=== PATIENT | female | born 1990 ===

== ENCOUNTER 2018-01-18 13:06 | Inpatient (IN) | payer BC, MEDICAID ==
[2018-01-18 13:47] VITALS: BMI 30.5
[2018-01-18 15:14] LABS: BASO % 0.5 % (0.0-2.0); EOS # 0.1 K/uL (0.0-0.7); EOS % 1.6 % (0.0-4.0); HEMOGLOBIN 11.2 g/dL (12.0-16.0); LYMPH # 1.5 K/uL (1.0-4.3); LYMPH % 26.8 % (20.0-40.0); MEAN CELL VOLUME 86.2 fl (81.0-99.0); MEAN CORPUSCULAR HEMOGLOBIN 29.8 pg (27.0-31.0); MEAN CORPUSCULAR HGB CONC 34.6 g/dL (33.0-37.0); MEAN PLATELET VOLUME 9.9 fl (7.2-11.7); MONO # 0.6 K/uL (0.0-0.8); MONO % 10.5 % (0.0-10.0); NEUT # 3.3 K/uL (1.8-7.0); NEUT % 60.6 % (50.0-75.0); NRBC % 0.2 % (0.0-0.0); RBC 3.76 Mil/uL (3.80-5.20); RED CELL DISTRIBUTION WIDTH 15.4 % (11.5-14.5); WHITE BLOOD COUNT 5.5 K/uL (4.8-10.8)
[2018-01-18 15:20] LABS: SQUAMOUS EPITHIAL 1 /hpf (0-5); URINE BACTERIA OCC (<OCC); URINE BILIRUBIN NEGATIVE (NEGATIVE); URINE BLOOD NEGATIVE (NEGATIVE); URINE CLARITY CLOUDY (Clear); URINE COLOR YELLOW (YELLOW); URINE GLUCOSE (UA) NEG (Normal); URINE LEUKOCYTE ESTERASE LARGE Leu/uL (Negative); URINE PROTEIN NEGATIVE (NEGATIVE); URINE UROBILINOGEN 0.2-1.0 mg/dL (0.2-1.0)
[2018-01-18 15:30] LABS: ALBUMIN 3.3 g/dL (3.5-5.0); ALT/SGPT 21 U/L (9-52); AST/SGOT 21 U/L (14-36); BLOOD UREA NITROGEN 3 mg/dl (7-17); CALCIUM 8.9 mg/dL (8.4-10.2); GFR AFRICAN-AMERICAN > 60; GFR NON-AFRICAN AMERICAN > 60; URIC ACID 4.7 mg/Dl (2.2-7.5)
[2018-01-18] MEDS ORDERED: AMPicillin 2 GM in Sodium Chloride 0.9% 100 ML IVPB ONE (17:43)
[2018-01-18] MEDS ORDERED: Lactated Ringer's 1,000 ML IV ONE (17:43)
--- NOTE | 2018-01-18 18:09 | OBADHP ---
Datetime: 01/18/2018 17:59 IP Chief Complaint Other: severe migraine IP Adm Impression Other: early labor with cervical chnges and decreased fm Admit Comment, IP Provider: pt came in c/o severe headaches and blurry vision and hx of pre-eclampsi a on first preg and monitoring done blood work done and BP monitored and stable Pt now also c/o decreased fm and upon pelvic exam cervical changes noted from last exam and since in early labor and with above hx and c/o will admit to L/D for possible augumentation and delivery Pt understands and a greed Extremities - PN: Normal Abdomen - PN: Abnormal Back - PN: Normal Breast - PN: Normal Lungs - PN: Normal Heart - PN: Normal Thyroid - PN: Normal Neurologic - PN: Normal HEENT - PN: Normal General - PN: Normal Presentation-Admit: Cephalic FHR - Baseline A Provider: 140 Membranes, Provider: Intact Contraction Comments Provider: irre Comments, ACOG Physical Exam: Abd gravid NT fundus at term Ext no edema or calf tenderness, no hyper rflexia Gestation - Est Wks by US: 39= IP Hx Assessment: The History has been Reviewed and is Current Vital Signs Provider: Reviewed IP Chief Complaint: Uterine contractions; Decreased movement; Other NICHD Variability Prov Fetus A: Moderate 6-25bpm NICHD Accel Fetus A IP Provider: 10X10 NICHD Decel Fetus A IP Provider: None Dilatation, Provider: 2cm Effacement, Provider: 80 Genitourinary Exam: Normal DTRs - PN: Normal EGA AdmitDate IP: 39.3 IP Adm Impression: Term, intrauterine IP Admit Plan: Admit to unit; Initiate labor protocol
[2018-01-18 18:30] VITALS: TEMP 98.2
[2018-01-18] MEDS: AMPicillin 1 GM in Sodium Chloride 0.9% 100 ML IVPB SCH (22:43)
[2018-01-19] MEDS ORDERED: Oxytocin 30 units/LR 500ML 30 U/500 ML BAG IV ONE (02:00)
[2018-01-19] MEDS: AMPicillin 1 GM in Sodium Chloride 0.9% 100 ML IVPB SCH ×6 (02:30→22:45)
--- NOTE | 2018-01-19 07:29 | OBPN ---
Datetime: 01/19/2018 07:25 IP Progress Impression: Normal progression of labor IP Progress Plan: Continue present management Membranes, Provider: Intact Contraction Comments Provider: q3 m FHR - Baseline A Provider: 150's Gestation - Est Wks by US: 39+ Presentation-Admit: C IP Progress Note Comment: bP stable no headaches Continue Pitocin augumentation and IV antibiotics NICHD Accel Fetus A IP Provider: 10X10 NICHD Variability Prov Fetus A: Moderate 6-25bpm Dilatation, Provider: 2-3 cm Effacement, Provider: 80-90 Station, Provider: -2 NICHD Decel Fetus A IP Provider: None Datetime: 01/18/2018 17:59 Vital Signs Provider: Reviewed
[2018-01-19] MEDS: Lactated Ringer's 1,000 ML IV SCH ×2 (08:00→23:15)
[2018-01-19] MEDS ORDERED: Lactated Ringer's 1,000 ML IV SCH (10:00)
[2018-01-19] MEDS ORDERED: Fentanyl/Bupivacaine HCl 250 ML EPI ONE (17:03)
[2018-01-19] MEDS ORDERED: Lidocaine 1% Inj (20ml) ONE (21:03)
--- NOTE | 2018-01-20 02:36 | OBDS ---
MATERNAL INFORMATION Delivery Anesthesia: Epidural Estimated Blood Loss (ml): 250 Maternal Complications: None Provider Comments: Delivered a living baby girl appears term cried spontaneously appears LGA, 9/9, AF clear, placenta complete and intact Perineum appears intact no cervical, vaginal or perineal tears or laceration noted Uterus contracted well Rectal done no defects Tolerated procedure well No c omplications LABOR SUMMARY EDC: 01/22/2018 00:00 No. Babies in Womb: 1 Labor Anesthesia: Epidural LABOR INFORMATION Reason for Induction: Not Applicable Onset of Labor: 01/19/2018 14:40 Oxytocin: Augmentation Group B Beta Strep: Positive Steroids Given: None Reason Steroids Not Administered: Not Applicable Other Reason Not Administered: n/a MEMBRANES Membranes Rupture Method: Artificial Amniotic Fluid Color: Clear Amniotic Fluid Amount: Large VAGINAL DELIVERY Episiotomy: None Laceration Extension: N/A Laceration Type: None Laceration Repair: Not Applicable Sponge Count Correct: Yes Sharps Count Correct: N/A Count Comment: count correct and verified by RN CSECTION DELIVERY Primary Indication: N/A Secondary Indication: N/A CSection Incision: N/A Uterine Closure: N/A BABY A INFORMATION Forceps: N/A Vacuum Extraction: N/A Shoulder Dystocia : No PRESENTATION/POSITION BABY A Presentation: Cephalic Cephalic Presentation: Vertex Vertex Position: Left Occipital Anterior Breech Presentation: N/A PLACENTA INFORMATION BABY A Placenta Method of Delivery: Spontaneous Placenta Status: Delivered
[2018-01-20] MEDS ORDERED: Oxycodone/Acetaminophen 5/325 mg Tab PO PRN ×2 (02:38→05:03)
[2018-01-20] MEDS ORDERED: Benzocaine/Menthol SPRAY TOP PRN (02:38)
[2018-01-20] MEDS: Benzocaine/Menthol SPRAY TOP PRN (05:30)
[2018-01-21 07:13] LABS: BASO # 0.1 K/uL (0.0-0.2); EOS # 0.2 K/uL (0.0-0.7); EOS % 2.4 % (0.0-4.0); HEMOGLOBIN 11.6 g/dL (12.0-16.0); LYMPH # 2.5 K/uL (1.0-4.3); LYMPH % 28.6 % (20.0-40.0); MEAN CELL VOLUME 86.8 fl (81.0-99.0); MEAN CORPUSCULAR HEMOGLOBIN 29.6 pg (27.0-31.0); MEAN CORPUSCULAR HGB CONC 34.1 g/dL (33.0-37.0); MEAN PLATELET VOLUME 9.7 fl (7.2-11.7); MONO # 0.8 K/uL (0.0-0.8); MONO % 9.1 % (0.0-10.0); NEUT # 5.1 K/uL (1.8-7.0); NEUT % 58.9 % (50.0-75.0); NRBC % 0.1 % (0.0-0.0); RBC 3.93 Mil/uL (3.80-5.20); RED CELL DISTRIBUTION WIDTH 15.8 % (11.5-14.5); WHITE BLOOD COUNT 8.6 K/uL (4.8-10.8)
[2018-01-22] MEDS: Benzocaine/Menthol SPRAY TOP PRN (09:03)
--- NOTE | 2018-01-22 09:11 | OBPPN ---
Datetime: 01/22/2018 09:05 PP Pain Prov: Within normal limits PP Pain Prov comment: Sob, chest pains or leg pains PP Nausea Prov: Denies PP Flatus Prov: Yes PP Nausea Prov comment: voiding well PP Breasts Prov: Normal PP Lungs Prov: Normal PP Abdomen/Uterus Prov: Abnormal PP Lochia Prov: Normal PP Vulva/Perineum Prov: Normal PP CVA Tenderness Prov: Normal PP Extremities Prov: Normal PP C/S Incision Prov: Not Applicable PP Progress Prov: Normal PP Comments Phys Exam Prov: breast NE, NT breast feeding; Abd soft ND, fundus firm below umb NT Ext no leg edema or calf tenderness PP Impression Prov: Normal progression PP Plan Prov: Discharge PP Progress Note Prov: D/C home with instructions and follow up office 4-6 wks IP PP Procedures: None Vital Signs Provider PP: Reviewed
--- NOTE | 2018-01-22 09:13 | OBDCSUM ---
Datetime: 01/22/2018 09:10 Discharged to, Provider: Home Follow up at, Provider: Dr Jude Main Instr Activity: Bedrest; May be up to bathroom; May be up for meals; May Shower Disch Instr Diet: Regular Discharge Instructions, Provider: Routine instructions given Discharge Diagnosis, Provider: Term Delivered Discharge Time: 01/22/2018 09:10 Follow up in weeks, Provider: 4-6 wks Disch Referrals: None Contraception discussed, Prov: Yes Disch Activity Restrictions: No exercising; No lifting; No driving; Minimize walking; Minimize stair -climbing; No sexual activity; Nothing in vagina - [place], tampons, douche Discharge Comment, Provider: continue PNC vit and iron Contraception after Delivery: Undecided Datetime: 01/22/2018 09:06 Discharged to, Provider: Home Follow up at, Provider: Dr. Jude Main Instr Activity: Normal activity Disch Instr Diet: Regular Discharge Time: 01/22/2018 10:00 Follow up in weeks, Provider: 6 Weeks Disch Referrals: None Disch Activity Restrictions: No sexual activity; Nothing in vagina - [place], tampons, douche
[2018-01-22 15:42] VITALS: BP 121/88; PULSE 79; RESP 20; O2SAT 98
== END 2018-01-22 10:33 | disposition home or self-care (01) | DRG 775 ==
LOC: H.EROB2 13:06 → H.L&D 17:41 → H.OB/GYN 01-20 04:15
PROVIDERS: ADMIT Specialist; ATTEND Specialist
PROC: 4A1HXCZ Monitoring of Products of Conception, Cardiac Rate, External Approach (ICD-10-PCS; 2018-01-18)
PROC: 10E0XZZ Delivery of Products of Conception, External Approach (ICD-10-PCS; principal; 2018-01-20)
DX: O36.8190 Decreased fetal movements, unspecified trimester, not applicable or unspecified (principal); O99.354 Diseases of the nervous system complicating childbirth; Z37.0 Single live birth; O99.824 Streptococcus B carrier state complicating childbirth; Z3A.39 39 weeks gestation of pregnancy; O36.60X0 Maternal care for excessive fetal growth, unspecified trimester, not applicable or unspecified; G43.909 Migraine, unspecified, not intractable, without status migrainosus